=== PATIENT | female | born 2000 | race Two or more races ===

== ENCOUNTER 2023-01-21 18:29 | Emergency (ER) | payer OTHER ==
[~2023-01-21] VITALS: Ht 154.9 cm; Wt 96.6 kg
[2023-01-21] MEDS ORDERED: CEPHALEXIN500 MG PO (23:50)
== END 2023-01-22 01:20 | disposition home or self-care (01) ==
LOC: ER 18:29
DX: O26.892 Other specified pregnancy related conditions, second trimester (principal); O23.42 Unspecified infection of urinary tract in pregnancy, second trimester; N39.0 Urinary tract infection, site not specified; Z3A.17 17 weeks gestation of pregnancy

== ENCOUNTER 2023-03-30 15:30 | Outpatient (CLI) | payer OTHER ==
[~2023-03-30 15:30] MED LIST: CEPHALEXIN500 MG PO
== END 2023-03-30 16:47 | disposition home or self-care (01) ==
LOC: PRENATAL 15:30
PROVIDERS: ATTEND Obstetrics & Gynecology Maternal & Fetal Medicine
DX: O35.9XX0 Maternal care for (suspected) fetal abnormality and damage, unspecified, not applicable or unspecified (principal); O99.210 Obesity complicating pregnancy, unspecified trimester; Z3A.26 26 weeks gestation of pregnancy

== ENCOUNTER 2023-05-31 15:27 | Outpatient (CLI) | payer OTHER ==
[2023-05-31] MEDS ORDERED: DAILY VALUE1 EACH PO (22:12)
[2023-05-31] MEDS ORDERED: PRENATAL TABLE1 EAC5 PO (22:12)
== END 2023-05-31 17:40 | disposition home or self-care (01) ==
LOC: PRENATAL 15:27
PROVIDERS: ATTEND Obstetrics & Gynecology Maternal & Fetal Medicine
DX: O26.849 Uterine size-date discrepancy, unspecified trimester (principal); O36.8199 Decreased fetal movements, unspecified trimester, other fetus; O99.210 Obesity complicating pregnancy, unspecified trimester; O41.00X0 Oligohydramnios, unspecified trimester, not applicable or unspecified; Z3A.34 34 weeks gestation of pregnancy

== ENCOUNTER 2023-05-31 21:22 | Inpatient (IN) | payer OTHER ==
[~2023-05-31] VITALS: Ht 154.9 cm; Wt 93.4 kg
[2023-05-31] MEDS ORDERED: DAILY VALUE1 EACH PO (22:12)
[2023-05-31] MEDS ORDERED: PRENATAL TABLE1 EAC5 PO (22:12)
== END 2023-06-08 14:28 | disposition home or self-care (01) | DRG 833 ==
LOC: LDR 21:22 → OB/GYN 06-02 16:31
PROVIDERS: ADMIT Obstetrics & Gynecology; ATTEND Obstetrics & Gynecology
PROC: 4A1HXCZ Monitoring of Products of Conception, Cardiac Rate, External Approach (ICD-10-PCS; principal; 2023-05-31)
PROC: BY4FZZZ Ultrasonography of Third Trimester, Single Fetus (ICD-10-PCS; 2023-06-02)
PROC: BY4FZZZ Ultrasonography of Third Trimester, Single Fetus (ICD-10-PCS; 2023-06-06)
DX: O41.03X0 Oligohydramnios, third trimester, not applicable or unspecified (principal); O36.8130 Decreased fetal movements, third trimester, not applicable or unspecified; O99.213 Obesity complicating pregnancy, third trimester; E66.8 Other obesity; Z20.822 Contact with and (suspected) exposure to COVID-19; Z3A.35 35 weeks gestation of pregnancy

== ENCOUNTER 2023-06-15 13:43 | Outpatient (CLI) | payer OTHER ==
[~2023-06-15 13:43] MED LIST changes: +DAILY VALUE1 EACH PO; +PRENATAL TABLE1 EAC5 PO
== END 2023-06-15 17:36 | disposition home or self-care (01) ==
LOC: PRENATAL 13:43
PROVIDERS: ATTEND Obstetrics & Gynecology Maternal & Fetal Medicine
DX: O36.8199 Decreased fetal movements, unspecified trimester, other fetus (principal); O99.210 Obesity complicating pregnancy, unspecified trimester; O41.00X0 Oligohydramnios, unspecified trimester, not applicable or unspecified; Z3A.36 36 weeks gestation of pregnancy

== ENCOUNTER 2023-06-24 01:42 | Inpatient (IN) | payer OTHER ==
[~2023-06-24] VITALS: Ht 157.5 cm; Wt 101.6 kg
== END 2023-06-27 13:54 | disposition home or self-care (01) | DRG 788 ==
LOC: OBS/DEL 01:42 → LDR 09:58 → O/R 13:38 → LDR 13:39 → O/R 18:37 → OB/GYN 19:49
PROVIDERS: ADMIT Obstetrics & Gynecology; ATTEND Obstetrics & Gynecology
PROC: 4A1HXCZ Monitoring of Products of Conception, Cardiac Rate, External Approach (ICD-10-PCS; 2023-06-24)
PROC: 10D00Z1 Extraction of Products of Conception, Low, Open Approach (ICD-10-PCS; principal; 2023-06-24 19:00)
DX: O41.03X0 Oligohydramnios, third trimester, not applicable or unspecified (principal); Z3A.38 38 weeks gestation of pregnancy; Z37.0 Single live birth; Z20.822 Contact with and (suspected) exposure to COVID-19